=== PATIENT | female | born 1995 | race Caucasian/White ===

== ENCOUNTER 2018-01-11 15:46 | Emergency (ER) | payer MEDICAID ==
[~2018-01-11] VITALS: Ht 162.6 cm; Wt 73.0 kg
[2018-01-11] MEDS ORDERED: IBUPROFEN 600MG TABLET PO ONE (18:15)
[2018-01-11 18:53] VITALS: BP 124/69
== END 2018-01-11 18:54 | disposition home or self-care (01) ==
LOC: ER 15:58
DX: S93.505A Unspecified sprain of left lesser toe(s), initial encounter (principal); S90.32XA Contusion of left foot, initial encounter; J45.909 Unspecified asthma, uncomplicated; X58.XXXA Exposure to other specified factors, initial encounter; Y93.02 Activity, running; Y92.89 Other specified places as the place of occurrence of the external cause; Y99.8 Other external cause status
CPT/HCPCS: 73630; 99284